=== PATIENT | female | born 1950 ===

== ENCOUNTER 2019-03-22 08:45 | Outpatient (CLI) | payer OTHER | END 2019-03-22 15:22 | disposition home or self-care (01) | LOC: SONOGRAMA 08:45 → MAMO-SONO 09:45 → SONOGRAMA 15:22 | DX: M06.4 Inflammatory polyarthropathy (principal) ==

== ENCOUNTER 2021-06-03 07:45 | Inpatient (IN) | payer OTHER ==
[~2021-06-03] VITALS: Ht 170.2 cm; Wt 99.8 kg
[2021-06-03] MEDS ORDERED: LIPITOR40 M1 PO (09:25)
[2021-06-03] MEDS ORDERED: GABAPENTIN600 MG PO (09:25)
[2021-06-03] MEDS ORDERED: MULTIPLE VITAM1 EAC2 PO (09:26)
[2021-06-03] MEDS ORDERED: ADULT LOW DOSE81 M1 PO (09:26)
[2021-06-03] MEDS ORDERED: TRICOR145 MG PO (10:01)
[2021-06-10] MEDS ORDERED: TIZANIDINE HCL4 M1 (08:33)
[2021-06-10] MEDS ORDERED: HYDROCHLOROTHIA25 MG (08:33)
[2021-06-10] MEDS ORDERED: CANDESARTAN CIL32 MG (08:33)
[2021-06-10] MEDS ORDERED: DAFLONEX-XL 11300 MG (08:33)
[2021-06-12] MEDS ORDERED: DUI500 PO (16:06)
[2021-06-12] MEDS ORDERED: ELIQUIS2.5 MG PO (16:06)
[2021-06-12] MEDS ORDERED: PERCOCET 5-3251 EACH PO (16:06)
== END 2021-06-12 20:10 | DRG 470 ==
LOC: SURH 06-10 06:26 → O/R 06-10 06:26 → SURH 06-10 07:45
PROVIDERS: ADMIT Orthopaedic Surgery; ATTEND Orthopaedic Surgery
PROC: 0SRD0J9 Replacement of Left Knee Joint with Synthetic Substitute, Cemented, Open Approach (ICD-10-PCS; principal; 2021-06-10 11:30)
DX: M17.12 Unilateral primary osteoarthritis, left knee (principal); I10 Essential (primary) hypertension; E66.9 Obesity, unspecified